=== PATIENT | male | born 1960 ===

== ENCOUNTER 2022-07-11 14:18 | Emergency (ER) | payer OTHER, SELFPAY ==
[2022-07-11 14:35] VITALS: BP 159/106; PULSE 76; RESP 14; TEMP 36.7; O2SAT 99; BMI 31.9
--- NOTE | 2022-07-11 15:17 | ED_ITS ---
HPI - General Adult General: Chief complaint: General Medical Stated complaint: Sent from [facility] for [facility] Time Seen by Provider: 07/11/22 15:17 History of Present Illness: Mr. Martinez is a 61-year-old gentleman with history of hypertension, hyperlipidemia presenting to the emergency department due to abnormal head pain with concern for temporal arteritis. Reports onset of symptoms approximately 1 month ago with a temporal and right-sided headache which has essentially persisted. At times it becomes more severe, he notes increased pain with touching the right side of his head. For the most part is mild to moderate. Denies associated fever. No jaw claudication. He typically follows at the [facility] in [place] and apparently had labs drawn and there was concern for temporal arteritis so he was supposed to have an ultrasound however this has not been performed yet. Denies other significant changes in health. Denies frequent headaches in the past. No other specific changes in health, exacerbating, or alleviating factors identified. Onset (ago): month(s) Location: head and right Severity: moderate Quality: other Pain Consistency: constant Relieving factors: none Exacerbating factors: none Review of Systems General: Reports: 10 or more systems reviewed and unremarkable except in HPI and below PFSH ED PFSH: Medical History Hyperlipidemia Hypertension Surgical History (Updated 07/11/22 @ 15:43 by Moises Childress MD) History of appendectomy Social History (Updated 07/11/22 @ 15:43 by Moises Childress MD) Smoking and tobacco status: never smoked Physical Exam Const: COMMON NORMALS: alert GENERAL APPEARANCE: cooperative and well developed HENMT: COMMON NORMALS: normocephalic and atraumatic HEAD & SCALP: normocephalic and atraumatic OTHER: No temporal tenderness palpation. Normal range of motion without symptom exacerbation on jaw movement. Normal posterior oropharynx. Eye: COMMON NORMALS: conjunctivae normal CONJUNCTIVA: Yes conjunctivae normal SCLERA: sclerae normal Neck/C-Spine: COMMON NORMALS: supple GENERAL: Yes trachea midline Resp: COMMON NORMALS: clear to auscultation bilaterally EFFORT & INSPE CTION: Yes able to speak in complete sentences AUSCULTATION: clear to auscultation bilaterally Cardio: COMMON NORMALS: regular rate and regular rhythm RATE: regular rate RHYTHM: regular rhythm GI: COMMON NORMALS: Soft to palpation PALPATION: Yes Soft to palpation and No Tenderness to palpation present (GI) Extremity: GENERAL: Yes normal exam except as noted and No edema Neuro: COMMON NORMALS: moves all extremities SENSORIUM/ORIENTATION: Yes alert and No Orientation impaired Psych: COMMON NORMALS: mental status grossly normal and Normal thought process present THOUGHT PROCESS: Normal thought process present Course Vital Signs: Vital signs: Vital Signs Temperature 98.1 F 07/11/22 14:35 Pulse Rate 62 07/11/22 17:30 Respiratory Rate 14 07/11/22 17:30 Blood Pressure 136/79 07/11/22 17:30 Pulse Oximetry 99 07/11/22 17:30 Oxygen Delivery Me thod 07/11/22 14:35 [facility] - General Adult Medical Decision Making 61-year-old gentleman referred from [place] for concern over possible temporal arteritis. No focal neurologic abnormalities appreciated. Labs with normal hematologic panel. Metabolic panel without significant abnormality to explain symptoms. ESR and CRP just minimally elevated. Negative CT head imaging. Mild improvement with fluids and headache cocktail. Exact etiology of symptoms is unclear. Clinical history is not entirely consistent with temporal arteritis though concerning the patient's had headache for as long as he has. Given uncertainty I will prescribe steroids and arrange for follow-up. The results of ED evaluation were discussed with the patient including prescriptions and/or symptomatic cares (if applicable) including appropriate and responsible use, followup plan, and return precautions. The patient verbalized understanding and felt safe for discharge. Medical Records I reviewed the patient's medical records. Lab Data I reviewed the patient's lab results. 07/11/22 15:45 07/11/22 15:[address] 07/11/22 15:32 IMPRESSION: No acute intracranial abnormality. Laboratory Results WBC 7.3 10^3/uL (4.0-10.0) 07/11/22 15:45 RBC 4.80 10^6/uL (4.1-5.3) 07/11/22 15:45 Hgb 14.5 g/dL (11.7-16.6) 07/11/22 15:45 Hct 41.7 % (42.0-52.0) L 07/11/22 15:45 MCV 86.9 fl (80-94) 07/11/22 15:45 MCH 30.2 pg (28.0-34.0) 07/11/22 15:45 MCHC 34.8 g/dL (30.0-36.0) 07/11/22 15:45 RDW 13.4 % (12.1-15.1) 07/11/22 15:45 Plt Count 285 10^3/cmm (130-400) 07/11/22 15:45 MPV 10.2 fL (7.4-10.4) 07/11/22 15:45 Neut % (Auto) 56.1 % 07/11/22 15:45 Lymph % (Auto) 32.5 % 07/11/22 15:45 Chaves % (Auto) 8.6 % 07/11/22 15:45 Eos % (Auto) 2.0 % 07/11/22 15:45 Baso % (Auto) 0.5 % 07/11/22 15:45 Neut # (Auto) 4.10 10^3/uL (1.8-7.7) 07/11/22 15:45 Lymph # (Auto) 2.4 10^3/uL (0.8-4.8) 07/11/22 15:45 Chaves # (Auto) 0.6 10^3/uL (0.2-0.9) 07/11/22 15:45 Eos # (Auto) 0.2 10^3/uL (0.0-0.8) 07/11/22 15:45 Baso # (Auto) 0.0 10^3/uL (0.0-0.1) 07/11/22 15:45 Nucleated RBC % (auto) 0 % 07/11/22 15:45 Nucleated RBCs # 0.0 /100WBC 07/11/22 15:45 ESR 13 mm/hr (0-10) H 07/11/22 15:45 Sodium 140 mmol/L (136-145) 07/11/22 15:45 Potassium 4.0 mmol/L (3.5-5.1) 07/11/22 15:45 Chloride 106 mmol/L (98-107) 07/11/22 15:45 Carbon Dioxide 23 mmol/L (22-29) 07/11/22 15:45 Anion Gap 15.0 (5-19) 11/18/22 15:45 BUN 16 mg/dL (8-23) 07/11/22 15:45 Creatinine 1.0 mg/dL (0.7-1.2) 07/11/22 15:45 GFR Calculation 75.7 mL/min (90-130) L 07/11/22 15:45 Glucose 95 mg/dL (65-115) 07/11/22 15:45 Calculated Osmolality 291 mOsm/kg (285-295) 07/11/22 15:45 Calcium 9.2 mg/dL (8.5-10.5) 07/11/22 15:45 C-Reactive Protein 6.5 mg/L (0.0-4.9) H 07/11/22 15:45 Discharge Plan Discharge Patient Disposition: Home Clinical Impression: Temporal pain Condition: Stable Prescriptions: No Action lisinopril 20 mg tablet 20 mg PO QAM hydrochlorothiazide 12.5 mg capsule 12.5 mg PO DAILY Discharge Orders: Discharge ED (Routine); Ordered 07/11/22 Ordered By: Moises Childress Discharge Diet: Usual diet Discharge Activity: Increase activity as tolerated Activity Restrictions/Additional Instructions: Thank you for visiting the emergency department. You were seen about a for headache. The exact cause of your symptoms is unclear though given prior evaluation and concerns I will treat you for temporal arteritis. I will refer you for consideration of temporal artery biopsy. I will also message case management for further care coordination. [facility] within the next week. You will likely need an additional prescription for a taper of steroids. Return to the emergency department for any visual changes, strokelike symptoms, uncontrolled pain, or anything else that you are concerned about a feel needs emergency department evaluation. Coding Level of Care Code ED [employer] Worker for Lucille Enriquez
--- NOTE | 2022-07-11 15:32 | CTR_ITS ---
PROCEDURE INFORMATION: Exam: CT Head Without Contrast Exam date and time: 07/11/2022 3:49 PM Age: 61 years old Clinical indication: Pain; Headache; Additional info: R sided headache for 1 month TECHNIQUE: Imaging protocol: Computed tomography of the head without contrast. Radiation optimization: All CT scans at this facility use at least one of these dose optimization techniques: automated exposure control; mA and/or kV adjustment per patient size (includes targeted exams where dose is matched to clinical indication); or iterative reconstruction. COMPARISON: No relevant prior studies available. RADIATION DOSE METRICS: Total DLP (mGy-cm): 1059.69 FINDINGS: Brain: Chronic lacunar infarct in the left basal ganglia. The young-white differentiation is maintained. No hemorrhage. No edema. Cerebral ventricles: No ventriculomegaly. Paranasal sinuses: Visualized sinuses are unremarkable. No fluid levels. Mastoid air cells: Visualized mastoid air cells are well aerated. Bones/joints: Unremarkable. No acute fracture. Soft tissues: Unremarkable. CT/CT head wo con* [id number] IMPRESSION: No acute intracranial abnormality.
--- NOTE | 2022-07-11 15:43 | PC.PHAR ---
pt and pts verified pts medications-pt and pts states the pt didnt think the hctz was working so pt dced last week- [facility]-notes are made in the pharmacy comments-pt and pts states this is the only medication the pt is taking
[2022-07-11 15:57] LABS: Basophils % 0.5 %; Eosinophils # 0.2 10^3/uL (0.0-0.8); Hematocrit 41.7 % (42.0-52.0); Hemoglobin 14.5 g/dL (11.7-16.6); Lymphocytes # 2.4 10^3/uL (0.8-4.8); Lymphocytes % 32.5 %; Mean Corpuscular HGB Conc 34.8 g/dL (30.0-36.0); Mean Corpuscular Hemoglobin 30.2 pg (28.0-34.0); Mean Corpuscular Volume 86.9 fl (80-94); Mean Platelet Volume 10.2 fL (7.4-10.4); Monocytes # 0.6 10^3/uL (0.2-0.9); Monocytes % 8.6 %; Neutrophils % 56.1 %; Nucleated Red Blood Cells % 0 %; Platelet Count 285 10^3/cmm (130-400); Red Cell Distribution Width 13.4 % (12.1-15.1); White Blood Count 7.3 10^3/uL (4.0-10.0)
[2022-07-11 15:59] VITALS: BP 163/96; PULSE 68; RESP 14
[2022-07-11 16:00] VITALS: BP 141/91; PULSE 71; RESP 18; O2SAT 97
[2022-07-11 16:00] LABS: Erythrocyte Sedimentation Rate 13 mm/hr (0-10)
[2022-07-11 16:09] LABS: Blood Urea Nitrogen 16 mg/dL (8-23); C Reactive Protein 6.5 mg/L (0.0-4.9); Calcium 9.2 mg/dL (8.5-10.5); Carbon Dioxide 23 mmol/L (22-29); Chloride 106 mmol/L (98-107); Glomerular Filtration Rate 75.7 mL/min (90-130); Glucose 95 mg/dL (65-115); Osmolality Calculated 291 mOsm/kg (285-295); Sodium 140 mmol/L (136-145)
[2022-07-11] MEDS: sodium chloride 0.9% 1,000 ML 999 ML IV (16:28)
[2022-07-11] MEDS: ketorolac 30 mg/mL INJ 15 MG IVP (16:28)
[2022-07-11] MEDS: metoclopramide 5 mg/mL SDV 2 mL 10 MG IVP (16:28)
[2022-07-11] MEDS: diphenhydrAMINE 50 mg/mL SDV 1mL 12.5 MG IVP (16:28)
[2022-07-11 16:30] VITALS: BP 150/104; PULSE 79; RESP 14; O2SAT 99
[2022-07-11 17:00] VITALS: BP 126/82; PULSE 68; RESP 14; O2SAT 96
[2022-07-11 17:30] VITALS: BP 136/79; PULSE 62; RESP 14; O2SAT 99
== END 2022-07-11 18:04 | disposition home or self-care (01) ==
PROVIDERS: Emergency Provider Emergency Medicine
DX: R51.9 Headache, unspecified (principal); I10 Essential (primary) hypertension; E78.5 Hyperlipidemia, unspecified
CPT/HCPCS: 70450; 80048; 85025; 85651; 86140; 96361; 96374; 96375; 99285; J1200; J1885; J2765; J7030